=== PATIENT | male | born 1965 | race Caucasian/White ===

== ENCOUNTER 2019-02-25 05:13 | Inpatient (IN) | payer BC ==
[~2019-02-25] VITALS: Ht 182.9 cm; Wt 124.6 kg
[2019-02-25] MEDS ORDERED: LACTATED RINGERS 1,000 ML IV SCH (05:50)
[2019-02-25] MEDS ORDERED: OXYC1TAB7 PO (05:52)
[2019-02-25] MEDS ORDERED: DIPH50CA62 PO (05:52)
[2019-02-25 06:02] VITALS: BP 125/76
[2019-02-25] MEDS ORDERED: VANCOMYCIN 1,000 MG ONE (06:13)
[2019-02-25] MEDS ORDERED: TRIAMCINOLONE ACETONIDE 40 MG/ML, 1ML ONE (06:13)
[2019-02-25] MEDS ORDERED: THROMBIN 5,000 UNIT VIAL TP ONE (06:13)
[2019-02-25] MEDS ORDERED: LIDOCAINE/PF 0.5% ,50ML ONE (06:13)
[2019-02-25] MEDS ORDERED: EPINEPHRINE 1 MG/ML, 1ML ONE (06:14)
[2019-02-25] MEDS ORDERED: MICROFIBRILLAR COLLAGEN 1 GM TP ONE (06:15)
[2019-02-25] MEDS ORDERED: FENTANYL PF 250 MCG/5ML ONE ×4 (06:26→08:31)
[2019-02-25] MEDS ORDERED: MIDAZOLAM 1 MG/ML, 2ML ONE (06:26)
[2019-02-25] MEDS ORDERED: ACETAMINOPHEN 500 MG TABLET PO ONE (06:30)
[2019-02-25] MEDS ORDERED: GABAPENTIN 300 MG CAPSULE PO ONE (06:30)
[2019-02-25] MEDS ORDERED: PROPOFOL 50 ML ONE ×3 (06:35→09:08)
[2019-02-25] MEDS ORDERED: PROMETHAZINE 25 MG/ML, 1ML IV PRN (07:00)
[2019-02-25] MEDS ORDERED: hydrALAzine 20 MG/ML, 1ML IV PRN (07:00)
[2019-02-25] MEDS ORDERED: PROMETHAZINE 12.5 MG SUPP PR PRN (07:00)
[2019-02-25] MEDS ORDERED: LABETALOL 5MG/ML, 20ML IV PRN (07:00)
[2019-02-25] MEDS ORDERED: ONDANSETRON ODT 8 MG PO PRN (07:00)
[2019-02-25] MEDS ORDERED: HYDROmorphone 2 MG/ML, 1ML IVPush PRN (07:00)
[2019-02-25] MEDS ORDERED: MEPERIDINE/PF 25MG/0.5ML IVPush PRN (07:00)
[2019-02-25] MEDS ORDERED: PROMETHAZINE 25 MG SUPP PR PRN (07:00)
[2019-02-25] MEDS ORDERED: ONDANSETRON 2MG/ML, 2ML IV PRN ×2 (07:00→12:30)
[2019-02-25] MEDS ORDERED: MORPHINE SULFATE 4 MG/ML, 1ML IVPush PRN (07:00)
[2019-02-25] MEDS ORDERED: PROMETHAZINE 25 MG/ML, 1ML IM PRN ×3 (07:00→12:30)
[2019-02-25] MEDS ORDERED: FENTANYL PF 100 MCG/2ML IV PRN (07:00)
[2019-02-25] MEDS ORDERED: OXYcodone 5 MG/5 ML ORAL.SOL UDC PO PRN (07:00)
[2019-02-25] MEDS ORDERED: ROCURONIUM 10MG/ML,5ML ONE (07:26)
[2019-02-25] MEDS ORDERED: NEOSTIGMINE 1 MG/ML, 10ML ONE (07:26)
[2019-02-25] MEDS ORDERED: GLYCOPYRROLATE 0.2MG/1ML, 5ML ONE (07:26)
[2019-02-25] MEDS ORDERED: PROPOFOL 10 MG/ML, 20ML ONE (07:26)
[2019-02-25] MEDS ORDERED: DEXAMETHASONE 4 MG/ML, 1ML ONE (07:26)
[2019-02-25] MEDS ORDERED: CEFAZOLIN 1,000 MG ONE (07:26)
[2019-02-25] MEDS ORDERED: TOBRAMYCIN SULFATE 1.2 GM IMP ONE (07:48)
[2019-02-25] MEDS ORDERED: PROPOFOL 100 ML ONE (08:09)
[2019-02-25] MEDS ORDERED: FENTANYL PF 100 MCG/2ML ONE ×2 (09:23→10:06)
[2019-02-25] MEDS ORDERED: OXYcodone 5 MG/5 ML ORAL.SOL UDC ONE (10:06)
[2019-02-25] MEDS ORDERED: HYDROmorphone 2 MG/ML, 1ML ONE (10:06)
[2019-02-25 12:12] VITALS: BP 116/64
[2019-02-25] MEDS ORDERED: HYDROcodone/APAP 5/325 TABLET PO PRN (12:30)
[2019-02-25] MEDS ORDERED: DIPHENHYDRAMINE 50 MG/ML, 1ML IM PRN (12:30)
[2019-02-25] MEDS ORDERED: DIPHENHYDRAMINE 50 MG CAPSULE PO PRN (12:30)
[2019-02-25] MEDS ORDERED: MAGNESIUM HYDROXIDE 8%, 30ML UDC PO PRN (12:30)
[2019-02-25] MEDS ORDERED: BISACODYL 10 MG SUPP PR PRN (12:30)
[2019-02-25] MEDS ORDERED: HYDROcodone/APAP 10/325 MG TABLET PO PRN (12:30)
[2019-02-25] MEDS ORDERED: DIPHENHYDRAMINE 50 MG/ML, 1ML IVPush PRN (12:30)
[2019-02-25] MEDS ORDERED: morphine SULFATE 10 MG/ML, 1ML IV PRN ×2 (12:30→16:30)
[2019-02-25] MEDS ORDERED: NICOTINE 21 MG/24 HR PATCH.TD24 ONE (13:09)
[2019-02-25] MEDS ORDERED: NICOTINE 21 MG/24 HR PATCH.TD24 TD SCH (13:30)
[2019-02-25] MEDS: CEFAZOLIN PMX 1GM/50ML 50 ML IVPB SCH ×2 (15:14→23:09)
[2019-02-25] MEDS: OXYcodone IR 5MG TABLET PO PRN ×3 (15:33→20:38)
[2019-02-25] MEDS: D5%-0.9% NACL+KCL 20MEQ 1,000 ML IV SCH ×2 (17:37→22:30)
[2019-02-25 19:44] VITALS: BP 105/72
[2019-02-25] MEDS: SENNA/DOCUSATE TABLET PO SCH (20:38)
[2019-02-25 23:21] VITALS: BP 115/69
[2019-02-26] MEDS: OXYcodone IR 5MG TABLET PO PRN ×3 (00:52→09:53)
[2019-02-26 02:54] VITALS: BP 102/61
[2019-02-26 07:38] VITALS: BP 105/51
[2019-02-26] MEDS: SENNA/DOCUSATE TABLET PO SCH (08:01)
[2019-02-26] MEDS ORDERED: OXYC5TAB2 PO (10:41)
== END 2019-02-26 11:00 | disposition home or self-care (01) | DRG 473 ==
LOC: ORIP 05:13 → 4NOR 11:53 → DCLOUNGE 02-26 10:46
PROVIDERS: ADMIT Orthopaedic Surgery Orthopaedic Surgery of the Spine; ATTEND Orthopaedic Surgery Orthopaedic Surgery of the Spine
PROC: 0RB30ZZ Excision of Cervical Vertebral Disc, Open Approach (ICD-10-PCS; 2019-02-25)
PROC: 01N10ZZ Release Cervical Nerve, Open Approach (ICD-10-PCS; 2019-02-25)
PROC: 0RG20K0 Fusion of 2 or more Cervical Vertebral Joints with Nonautologous Tissue Substitute, Anterior Approach, Anterior Column, Open Approach (ICD-10-PCS; principal; 2019-02-25 07:00)
DX: M50.122 Cervical disc disorder at C5-C6 level with radiculopathy (principal); M50.123 Cervical disc disorder at C6-C7 level with radiculopathy
CPT/HCPCS: 72040; J3260; C1713; G0378; J0171; J0690; J1100; J1170; J2001; J2250; J2704; J2710; J3010; J3301; J3370; C1762; J2270; J3480; J7120